=== PATIENT | male | born 1960 | race Caucasian/White ===

== ENCOUNTER 2022-02-14 09:00 | Day surgery (SDC) | payer BC ==
[2022-02-13 08:56] VITALS: BMI 27.8
[~2022-02-14 09:00] MED LIST: LACTATED RINGERS 1,000 ML IV SCH; LIDOCAINE 1% (10MG/ML) FOR IV START INTRADERMA PRN
[2022-02-14 09:49] VITALS: TEMP 96.8
[2022-02-14] MEDS ORDERED: LACTATED RINGERS 1,000 ML IV ONE (09:49)
[2022-02-14] MEDS ORDERED: PROPOFOL 10 MG/ML 20 ML VIAL IV ONE (11:01)
--- NOTE | 2022-02-14 11:18 | P.PCN ---
Date of Procedure: 02/14/22 Procedure(s) Performed: BRIEF HISTORY: Patient is a 62-year-old pleasant white male scheduled for an elective colonoscopy as a part of screening for colon cancer. Last colonoscopy was 7 years ago. PROCEDURE PERFORMED: Colonoscopy. PREOPERATIVE DIAGNOSIS: Screening for colon cancer. IV sedation per Anesthesia. PROCEDURE: After informed consent was obtained, the patient, was brought into the endoscopy unit. IV sedation was administered by Anesthesia under continuous monitoring. Digital rectal examination was normal. Initially the Olympus CF-160 flexible video colonoscope was then inserted in the rectum, gradually advanced into the cecum without any difficulty. Careful examination was performed as the scope was gradually being withdrawn. Ileocecal valve and the appendiceal orifice were visualized and appeared normal. Prep was excellent. Mucosa of the cecum, ascending colon, transverse colon, descending colon, sigmoid colon, and rectum appeared normal. Retroflexion was performed in the rectum and no lesions were seen. The patient tolerated the procedure well. IMPRESSION: Normal-appearing colon from rectum to cecum no runs of colorectal neoplasia. RECOMMENDATIONS: Findings of this examination were discussed with the patient as well as his family. He was advised to have a repeat screening colonoscopy in 10 years..
[2022-02-14 11:29] VITALS: BP 159/91; PULSE 59
[2022-02-14 11:45] VITALS: RESP 16
== END 2022-02-14 12:05 | disposition home or self-care (01) ==
LOC: ORWHC2ENDO 09:00
PROVIDERS: ATTEND Internal Medicine Gastroenterology
DX: Z12.11 Encounter for screening for malignant neoplasm of colon (principal); I10 Essential (primary) hypertension; Z79.899 Other long term (current) drug therapy
CPT/HCPCS: 45378; J2704

== ENCOUNTER 2022-03-17 15:45 | Emergency (ER) | payer BC ==
[2022-03-17 16:04] VITALS: RESP 16
--- NOTE | 2022-03-17 16:52 | ED ---
Back Pain HPI - General Source: patient, RN notes reviewed Limitations: no limitations <Maryellen Mosquera - Last Filed: 03/17/22 16:54> <Casey Hdz - Last Filed: 03/18/22 01:23> - General Chief Complaint: Back Pain/Injury Stated Complaint: kidney stones Time Seen by Provider: 03/17/22 16:53 - History of Present Illness Initial Comments: Patient is a 62-year-old male who presents to the emergency department with a chief complaint of left flank pain. Patient diagnosed with multiple kidney stones at [facility] yesterday. He was sent home with Motrin which he has not been taking due to minimal pain. He was told that one of the stones is too large to pass therefore has appointment with urologist on Sunday. This afternoon patient endorsed increased left flank pain which brought him into the emergency department. Reports nausea without vomiting. Denies fever, chills, burning with urination, blood in the urine. Patient initially in significant pain in the waiting room which has mostly subsided. (Maryellen Mosquera) I did evaluate the patient once the patient was placed in a hallway bed. On my evaluation, the patient stated that his pain had resolved but stated that he believed it was momentary. The patient came to the emergency department today because he had worsening pain at home despite having medications. The patient on my evaluation denied any other acute pain or distress and has never followed up with urologist. The patient did have a urologist scheduled on Sunday. The patient denied any other acute pain or complaints at this time. (Casey Hdz) - Related Data Home Medications Medication Instructions Recorded Confirmed L.acidoph,Paracasei, B.lactis 1 each PO DAILY 02/13/22 02/13/22 [Probiotic] carvediloL [Coreg] 3.125 mg PO BID 02/13/22 02/13/22 Previous Rx's Medication Instructions Recorded HYDROcodone/APAP 5-325MG [[place] 1 tab PO Q6HR PRN 3 Days #12 tab 03/17/22 5-325] Ketorolac [Toradol] 10 mg PO Q6HR #30 tab 03/17/22 Ondansetron Odt [Zofran Odt] 4 mg PO Q8HR PRN #20 tab 03/17/22 Tamsulosin [Flomax] 0.4 mg PO DAILY #14 cap 01/06/23 Allergies Allergy/AdvReac Type Severity Reaction Status Date / Time No Known Allergies Allergy Verified 02/13/22 08:45 Review of Systems ROS Other: All systems not noted in ROS Statement are negative. <Maryellen Mosquera - Last Filed: 03/17/22 16:54> ROS Other: All systems not noted in ROS Statement are negative. <Casey Hdz - Last Filed: 03/18/22 01:23> ROS Statement: Those systems with pertinent positive or pertinent negative responses have been documented in the HPI. Past Medical History Additional Past Medical History / Comment(s): left bundle branch block. kidney stone History of Any Multi-Drug Resistant Organisms: None Reported Past Surgical History: AICD, Orthopedic Surgery, Pacemaker, Tonsillectomy Additional Past Surgical History / Comment(s): duel pacemaker defib,rose wrist surgery,knee procedure Past Anesthesia/Blood Transfusion Reactions: No Reported Reaction Type of Cardiac Device: Permanent Pacemaker, AICD Device Placement Date:: 10-05-21-[facility] Past Psychological History: No Psychological Hx Reported Smoking Status: Never smoker - Past Family History Mother Family Medical History: No Reported History <Maryellen Mosquera - Last Filed: 03/17/22 16:54> General Exam Limitations: no limitations <EvelineMaryellen - Last Filed: 03/17/22 16:54> Limitations: no limitations General appearance: alert, in no apparent distress Head exam: Present: atraumatic, normocephalic, normal inspection Eye exam: Present: normal appearance, PERRL Pupils: Present: normal accommodation ENT exam: Present: normal exam, normal oropharynx, mucous membranes moist Neck exam: Present: normal inspection, full ROM Respiratory exam: Present: normal lung sounds bilaterally Cardiovascular Exam: Present: regular rate, normal rhythm, normal heart sounds GI/Abdominal exam: Present: soft, normal bowel sounds Extremities exam: Present: normal inspection, full ROM, normal capillary refill Back exam: Present: normal inspection, full ROM Neurological exam: Present: alert, oriented X3, CN II-XII intact Psychiatric exam: Present: normal affect, normal mood Skin exam: Present: warm, dry <Casey Hdz - Last Filed: 03/18/22 01:23> Course Vital Signs 03/17/22 03/17/2223 16:01 21:18 23:17 Temperature 98 F 98.2 F 98 F Pulse Rate 59 L 64 66 Respiratory 16 16 16 Rate Blood Pressure 215/105 162/90 154/84 O2 Sat by Pulse 99 99 100 Oximetry Medical Decision Making - Lab Data Result diagrams: 03/17/22 21:37 03/17/22 21:37 <Casey Hdz - Last Filed: 03/18/22 01:23> - Medical Decision Making Was pt. sent in by a medical professional or institution (, PA, DRY HOUSE ATTENDANT, urgent care, hospital, or care home...) When possible be specific @ -No Did you speak to anyone other than the patient for history (EMS, parent, family, police, friend...)? What history was obtained from this source @ -No Did you review nursing and triage notes (agree or disagree)? Why? @ -I reviewed and agree with nursing and triage notes Were old charts reviewed (outside hosp., previous admission, EMS record, old EKG, old radiological studies, urgent care reports/EKG's, care home records)? Report findings @ -No old charts were reviewed Differential Diagnosis (chest pain, altered mental status, abdominal pain women, abdominal pain men, vaginal bleeding, weakness, fever, dyspnea, syncope, headache, dizziness, GI bleed, back pain, seizure, CVA, palpatations, mental health)? @ -Pyelonephritis, hydronephrosis, kidney stone, UTI EKG interpreted by me (3pts min.). @ -None X-rays interpreted by me (1pt min.). @ -None done CT interpreted by me (1pt min.). @ -CT abdomen and pelvis without contrast was obtained and was interpreted by myself showing an obstructing 7mm calculus in the proximal left ureter with left-sided hydronephrosis. There were multiple bilateral renal calculi seen as well. U/S interpreted by me (1pt. min.). @ -None done What testing was considered but not performed or refused? (CT, X-rays, U/S, labs)? Why? @ -None What meds were considered but not given or refused? Why? @ -None Did you discuss the management of the patient with other professionals (fabiola vela iMatteMatt Lara, PA, DRY HOUSE ATTENDANT, lab, RT, psych nurse, social services director, director of manufacturing operations, teacher, corporate responsibility officer, lining caser)? Give summary @ -Yes, urology environmental epidemiologist Dr. Kwan Was smoking cessation discussed for >3mins.? @ -No Was critical care preformed (if so, how long)? @ -No Were there social determinants of health that impacted care today? How? (Homelessness, low income, unemployed, alcoholism, drug addiction, transportation, low edu. Level, literacy, decrease access to med. care, [facility], rehab)? @ -No Was there de-escalation of care discussed even if they declined (Discuss DNR or withdrawal of care, Hospice)? DNR status @ -No What co-morbidities impacted this encounter? (DM, HTN, Smoking, COPD, CAD, Cancer, CVA, ARF, Chemo, Hep., AIDS, mental health diagnosis, sleep apnea, morbid obesity)? @ -None Was patient admitted / discharged? Hospital course, mention meds given and ro [place], prescriptions, significant lab abnormalities, going to OR and other pertinent info. @ -The patient was seen and evaluated emergency department. On physical exam, the patient was resting in bed without any acute distress or pain. Workup showed a 7 mm obstructing stone in the left proximal ureter. Because the patient did present to the emergency department after being seen at an outside facility yesterday for the same pain, the urologist on-call was contacted. Dr. Kwan stated that he would not be able to do any interventions told sometime next week however the patient could be admitted if he had intractable pain. I did tell the patient of this and he did request to be discharged home. I determined that the patient only was given Motrin for pain from the previous visit at the outside facility and will give him a prescription for Flomax, [place], Toradol as well as Zofran. The patient was advised to continue take his medications to help pass his stone at home and to follow-up with his urologist as previous he scheduled on Sunday. The patient was agreeable to this plan and all discretions were answered. The patient was discharged home in stable condition. 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 Undiagnosed new problem with uncertain prognosis? @ -No Drug Therapy requiring intensive monitoring for toxicity (Heparin, Nitro, Insulin, Cardizem)? @ -No Were any procedures done? @ -No Diagnosis/symptom? @ -Left sided kidney stone Acute, or Chronic, or Acute on Chronic? @ -Acute Uncomplicated (without systemic symptoms) or Complicated (systemic symptoms)? @ -Uncomplicated Side effects of treatment? @ -No Exacerbation, Progression, or Severe Exacerbation? @ -No Poses a threat to life or bodily function? How? (Chest pain, [place], [place], pneumonia, PE, COPD, DKA, ARF, appy, cholecystitis, CVA, Diverticulitis, Homicidal, Suicidal, threat to staff... and all critical care pts) @ -No (Casey Hdz) - Lab Data Lab Results 03/17/22 03/17/22 03/17/22 Range/Units 21:37 21:37 21:37 WBC 10.1 (3.8-10.6) k/uL RBC 4.99 (4.30-5.90) m/uL Hgb 15.1 (13.0-17.5) gm/dL Hct 43.6 (39.0-53.0) % MCV 87.4 (80.0-100.0) fL MCH 30.3 (25.0-35.0) pg MCHC 34.7 (31.0-37.0) g/dL RDW 13.1 (11.5-15.5) % Plt Count 222 (150-450) k/uL MPV 7.7 Neutrophils % 76 % Lymphocytes % 17 % Monocytes % 6 % Eosinophils % 1 % Basophils % 0 % Neutrophils # 7.6 (1.3-7.7) k/uL Lymphocytes # 1.7 (1.0-4.8) k/uL Monocytes # 0.6 (0-1.0) k/uL Eosinophils # 0.1 (0-0.7) k/uL Basophils # 0.1 (0-0.2) k/uL Sodium 141 (137-145) mmol/L Potassium 4.3 (3.5-5.1) mmol/L Chloride 108 H (98-107) mmol/L Carbon Dioxide 24 (22-30) mmol/L Anion Gap 9 mmol/L BUN 20 (9-20) mg/dL Creatinine 1.34 H (0.66-1.25) mg/dL Est GFR (CKD-EPI)AfAm 66 (>60 ml/min/1.73 sqM) Est GFR (CKD-EPI)NonAf 57 (>60 ml/min/1.73 sqM) Glucose 89 (74-99) mg/dL Calcium 9.4 (8.4-10.2) mg/dL Magnesium 2.0 (1.6-2.3) mg/dL Total Bilirubin 0.8 (0.2-1.3) mg/dL AST 36 (17-59) U/L ALT 29 (4-49) U/L Alkaline Phosphatase 76 (38-126) U/L Total Protein 7.6 (6.3-8.2) g/dL Albumin 4.5 (3.5-5.0) g/dL Urine Color Yellow Urine Appearance Cloudy (Clear) Urine pH 5.5 (5.0-8.0) Ur Specific [place] 1.024 (1.001-1.035) Urine Protein Trace H (Negative) Urine Glucose (UA) Negative (Negative) Urine Ketones Negative (Negative) Urine Blood Moderate H (Negative) Urine Nitrite Negative (Negative) Urine Bilirubin Negative (Negative) Urine Urobilinogen <2.0 (<2.0) mg/dL Ur Leukocyte Esterase Negative (Negative) Urine RBC 105 H (0-5) /hpf Urine WBC 10 H (0-5) /hpf Calcium Oxalate Crystal Moderate H (None) /hpf Urine Mucus Few H (None) /hpf Disposition <Maryellen Mosquera - Last Filed: 03/17/22 16:54> Is patient prescribed a controlled substance at d/c from ED?: Yes When asked, does pt state using other controlled substances?: No If prescribed controlled substance>3 days was MAPS reviewed?: Prescribed <3 Days If opioid is for acute pain is fill amount 7 days or less?: Yes If Rx opioid, was Start Talking consent form obtained?: Yes Time of Disposition: 23:00 <Casey Hdz - Last Filed: 03/18/22 01:23> Clinical Impression: Kidney stone on left side Disposition: HOME SELF-CARE Condition: Stable Instructions (If sedation given, give patient instructions): Kidney Stones (ED) Prescriptions: Tamsulosin [Flomax] 0.4 mg PO DAILY #14 cap HYDROcodone/APAP 5-325MG [[place] 5-325] 1 tab PO Q6HR PRN 3 Days #12 tab PRN Reason: Pain Ketorolac [Toradol] 10 mg PO Q6HR #30 tab Ondansetron Odt [Zofran Odt] 4 mg PO Q8HR PRN #20 tab PRN Reason: Nausea Referrals: None,Stated [REFERRING] - 1-2 days Erasmo Kwan MD [STAFF PHYSICIAN] - 1-2 days
--- NOTE | 2022-03-17 17:55 | CT ---
EXAMINATION TYPE: CT abdomen pelvis wo con DATE OF EXAM: 03/17/2022 COMPARISON: None HISTORY: left flank pain CT DLP: 800.1 mGycm Automated exposure control for dose reduction was used. Images obtained from the diaphragm to the floor the pelvis with no contrast. Lung bases are clear. No pleural effusion. Heart size is normal. No pericardial effusion. Liver splee n and stomach pancreas gallbladder appear intact. The bowel is not dilated. There is no adrenal mass. Kidneys have normal size. There is left-sided hydronephrosis with obstructi ng 7 mm calculus in the proximal left ureter. There are multiple bilateral renal calculi that measure up to 5 mm. No retroperitoneal adenopathy. The bladder distends smoothly. No inguinal hernia. No maximo e fluid in the pelvis. No pelvic mass. Appendix is medial and appears normal. There is no mesenteric edema. No ascites or free air. No sign of a bowel obstruction. The lumbar vert ebrae have normal alignment. Posterior elements are intact. No compression fracture. There is disc sp lisa narrowing at L5-S1 with vacuum disc and spur formation. The bony pelvis is intact. The hip joints are intact. Sacroiliac joints appear normal. IMPRESSION: Obstructing calculus in the proximal left ureter with left-sided hydronephrosis. Multiple bilateral r enal calculi.
[2022-03-17 22:23] LABS: Basophils # (A) 0.1 k/uL (0-0.2); Basophils % (A) 0 %; Eosinophils # (A) 0.1 k/uL (0-0.7); Eosinophils % (A) 1 %; HCT 43.6 % (39.0-53.0); HGB 15.1 gm/dL (13.0-17.5); Lymphocytes # (A) 1.7 k/uL (1.0-4.8); Lymphocytes % (A) 17 %; MCH 30.3 pg (25.0-35.0); MCHC 34.7 g/dL (31.0-37.0); MCV 87.4 fL (80.0-100.0); Mean Platelet Volume 7.7; Monocytes # (A) 0.6 k/uL (0-1.0); Monocytes % (A) 6 %; Neutrophils # (A) 7.6 k/uL (1.3-7.7); Neutrophils % (A) 76 %; Platelet Count 222 k/uL (150-450); RBC 4.99 m/uL (4.30-5.90); RDW 13.1 % (11.5-15.5); WBC 10.1 k/uL (3.8-10.6)
[2022-03-17 22:38] LABS: Albumin 4.5 g/dL (3.5-5.0); Calcium 9.4 mg/dL (8.4-10.2); Total Bilirubin 0.8 mg/dL (0.2-1.3); Total Protein 7.6 g/dL (6.3-8.2)
[2022-03-17 22:52] LABS: Potassium 4.3 mmol/L (3.5-5.1)
[2022-03-17 23:01] LABS: Appearance,Urine Cloudy (Clear); Bilirubin,Urine Negative (Negative); Blood,Urine Moderate (Negative); Calcium Oxalate Crystals,Urine Moderate /hpf; Color,Urine Yellow; Glucose,Urine (UA) Negative (Negative); Ketones,Urine Negative (Negative); Leukocyte Esterase,Urine Negative (Negative); Mucus,Urine Few /hpf; Nitrite,Urine Negative (Negative); PH, Urine 5.5 (5.0-8.0); Protein,Urine Trace (Negative); RBC,Urine 105 /hpf (0-5); Specific Gravity,Urine 1.024 (1.001-1.035); Urobilinogen,Urine <2.0 mg/dL (<2.0); WBC,Urine 10 /hpf (0-5)
[2022-03-17] MEDS ORDERED: KETOROLAC 15 MG/ML 1 ML VIAL IM STA (23:04)
[2022-03-17 23:19] VITALS: BP 154/84; PULSE 66; TEMP 98
== END 2022-03-17 23:18 | disposition home or self-care (01) ==
LOC: EC 15:45
DX: N20.0 Calculus of kidney (principal)
CPT/HCPCS: 36415; 80053; 83735; 85025; 81001; 74176; 99284; 96372; J1885